=== PATIENT | female | born 1980 ===

== ENCOUNTER 2022-03-20 17:47 | Emergency (ER) | payer SELFPAY ==
[~2022-03-20] VITALS: Ht 154.9 cm; Wt 70.8 kg
[2022-03-20] MEDS ORDERED: SODIUM CHLORIDE 0.9% 1000ML 1,000 ML IV ONE (19:00)
[2022-03-20] MEDS ORDERED: ONDANSETRON HCL INJ 2MG/ML 2ML 2 MG/ML VIAL IV PRN (19:00)
[2022-03-20 19:08] LABS: BASOPHILS % 0.5 % (0.0-1.0); EOSINOPHILS # (AUTO) 0.1 (0.0-0.4); EOSINOPHILS % 1.1 % (0.0-6.0); HEMATOCRIT 35.6 % (34.2-44.1); LYMPHOCYTES # (AUTO) 1.4 (1.0-3.2); LYMPHOCYTES % 22.6 % (18.0-39.1); MEAN CORPUSCULAR HEMOGLOBIN 24.7 pg (28-32); MEAN CORPUSCULAR HGB CONC 30.9 g/dL (31-35); MEAN CORPUSCULAR VOLUME 79.8 fL (81-99); MONOCYTES # (AUTO) 0.3 (0.2-0.8); MONOCYTES % 5.4 % (4.4-11.3); NEUTROPHILS # (AUTO) 4.3 (2.1-6.9); NEUTROPHILS % 69.8 % (38.7-80.0); PLATELET COUNT 257 x10e3/uL (140-360); RED BLOOD COUNT 4.46 x10e6/uL (3.6-5.1); RED CELL DISTRIBUTION WIDTH 13.7 % (11.7-14.4)
[2022-03-20 19:23] LABS: ALBUMIN 4.1 g/dL (3.5-5.0); ANION GAP 16.6 mmol/L (8-16); CALCIUM 9.1 mg/dL (8.4-10.2); CREATININE, SERUM 0.64 mg/dL (0.57-1.11); POTASSIUM 3.6 mmol/L (3.5-5.1)
[2022-03-20 19:25] LABS: CLARITY,URINE CLEAR (CLEAR); COLOR,URINE YELLOW (YELLOW); EPITHELIAL CELLS,URINE FEW /LPF; KETONES,URINE NEGATIVE (NEGATIVE); LEUKOCYTE ESTERASE ,URINE NEGATIVE (NEGATIVE); NITRITE,URINE NEGATIVE (NEGATIVE); PROTEIN,URINE DIPSTICK NEGATIVE (NEGATIVE); URINE UROBILINOGEN 0.2 mg/dL (0.2 - 1)
[2022-03-20] MEDS ORDERED: ONDANSETRON ODT4 MG PO (19:48)
[2022-03-20 19:58] VITALS: BP 128/72
== END 2022-03-20 19:59 | disposition home or self-care (01) ==
LOC: ER 17:58
DX: E86.0 Dehydration (principal); T67.5XXA Heat exhaustion, unspecified, initial encounter; Z20.822 Contact with and (suspected) exposure to COVID-19
CPT/HCPCS: 36415; 80053; 81001; 82550; 84702; 85025; 99284; J2405; J7030; U0002